=== PATIENT | male | born 1990 | race Caucasian/White ===

== ENCOUNTER 2018-01-22 20:52 | Emergency (ER) | payer OTHER | END 2018-01-22 21:50 | disposition home or self-care (01) | LOC: SCSER 20:52 | DX: S31.21XA Laceration without foreign body of penis, initial encounter (principal); F31.9 Bipolar disorder, unspecified; F98.8 Other specified behavioral and emotional disorders with onset usually occurring in childhood and adolescence; X58.XXXA Exposure to other specified factors, initial encounter | CPT/HCPCS: 99282 ==